=== PATIENT | male | born 1965 | race Caucasian/White ===

== ENCOUNTER 2023-11-24 10:57 | Emergency (ER) | payer MEDICAID ==
[2023-11-24 11:20] VITALS: BP 151/92; O2SAT 99
--- NOTE | 2023-11-24 12:01 | ED Physician Documentation ---
PD HPI LOWER EXT INJURY - Stated complaint Stated Complaint: RT ANKLE PX - Chief complaint Chief Complaint: Ext Problem - Additional information Additional information: 58-year-old male with no pertinent past medical history presents emergency department for right lateral malleolus tenderness. Patient says that he did not do anything to cause this pain he took a weird step and felt immediate pain just posterior below the right lateral malleolus. No history of trauma or surgery to this right ankle in the past. He did not hit his head he is not on blood thinners. He says he is okay at rest in regards to his pain but he says pain shoots up to a 10 with any sort of flexion or weightbearing activities. PD PAST MEDICAL HISTORY - Past Medical History Past Medical History: No - Past Surgical History Past Surgical History: No - Present Medications Home Medications: Ambulatory Orders Medication Instructions Recorded Confirmed No Known Home Medications 11/24/23 11/24/23 - Allergies Allergies/Adverse Reactions: Allergies Allergy/AdvReac Type Severity Reaction Status Date / Time No Known Drug Allergies Allergy Verified 11/24/23 11:11 - Social History Does the pt smoke?: No Smoking Status: Never smoker Does the pt drink ETOH?: Yes Does the pt have substance abuse?: No - Immunizations Immunizations are current?: Yes - POLST Patient has POLST: No PD ED PE NORMAL - Vitals Vital signs reviewed: Yes - General General: Alert and oriented X 3, No acute distress, Well developed/nourished - Extremities Extremities: Other (Right lower extremity: Significant tenderness to the right lateral malleolus. CMS intact, strong dorsalis pedis pulse Achilles intact) Results - Vitals Vitals: Vital Signs - 24 hr 11/24/23 11:06 Temperature 36.4 C L Heart Rate 62 Respiratory 18 Rate Blood Pressure 151/92 H O2 Saturation 99 Oxygen O2 Source Room air - Rads (name of study) Right ankle x-rays Relevant Findings:: Final report received, EMP independent interpretation of test, Other (Unsure if acute small bone fragments are seen adjacent to the medial malleolus, soft tissue swelling present possible ligament injury.) Procedures - Splint (location) - Minor Right ankle Splint applied by: Tech Type of splint: Fiberglass, Short leg, Posterior, Stirrup Other: Patient tolerated well, No complications, Neurovascular intact, Good alignment, Crutches provided PD Medical Decision Making - ED course ED course: 58-year-old male presents emergency department for right ankle pain. X-rays were complete for further evaluation and he appears to have an age-indeterminate small bone fragment adjacent to the medial malleolus.. Achilles is intact patient denies any pain with palpation of his Achilles region. I believe that patient is experiencing a ligament injury with a possible fracture. Because of the significance of pain that he experiences with any minimal flexion or extension of the right ankle and any minimal weightbearing activity we went ahead and put him in a posterior stirrup short leg splint. He is told to follow-up with Ortho outpatient and do not ambulate on the foot crutches given to the patient. Return precautions given patient offered Tylenol ibuprofen but he kindly declined. Patient safer discharge at this time. Departure - Departure Disposition: 01 Home, Self Care Clinical Impression: Closed right ankle fracture, Sprain of ligament of right ankle Instructions: ED Splint Care Fiberglass, ED Fx Ankle Lateral Malleolus Comments: It appears that you have some sort of ligament injury into that right ankle. We are sending you home with crutches you can alternate between Tylenol ibuprofen for pain and discomfort keep it elevated above your heart is much as possible to help with inflammation and follow-up with Ortho outpatient for further evaluation. Thank you for your patience today wishing you a speedy recovery please come back and if you are having any severe worsening pain or any other emergent concerns or symptoms. Forms: PCP List Discharge Date/Time: 11/24/23 14:54
--- NOTE | 2023-11-24 13:39 | XRAY Report ---
PROCEDURE: Ankle 3+V RT INDICATIONS: right ankle pain and swelling TECHNIQUE: 3 views of the ankle were acquired. COMPARISON: None. FINDINGS: Bones: Age-indeterminate small bone fragment seen adjacent to the medial malleolus. There are mild to moderate tibiotalar and midfoot degenerative changes. The ankle mortise is intact on this nonweightb earing study. Plantar enthesopathy. Soft tissues: Soft tissue swelling is present. IMPRESSION: Age-indeterminate small bone fragments are seen adjacent to the medial malleolus. Superimposed midfoot and tibiotalar degenerative changes. Soft tissue swelling is present. Ligamentous injury is possible. If there is high concern for further derangement, consider MRI evaluation. Reviewed by: Rome Urrutia MD on 11/24/2023 1:37 PM PDT Approved by: Rome Urrutia MD on 11/24/2023 1:37 PM PDT Station ID: [id number]
== END 2023-11-24 14:54 | disposition home or self-care (01) ==
LOC: ED 10:57
DX: S82.891A Other fracture of right lower leg, initial encounter for closed fracture (principal); S93.401A Sprain of unspecified ligament of right ankle, initial encounter; X50.9XXA Other and unspecified overexertion or strenuous movements or postures, initial encounter; Y93.89 Activity, other specified
CPT/HCPCS: 29515; 99284

== ENCOUNTER 2023-11-30 10:04 | Outpatient (CLI) | payer MEDICAID ==
--- NOTE | 2023-11-30 19:28 | XRAY Report ---
PROCEDURE: Ankle 3+V RT INDICATIONS: ANKLE PAIN,RIGHT TECHNIQUE: 3 views of the ankle were acquired. COMPARISON: 11/24/2023 FINDINGS: Bones: Questionable cortical irregularity and inferiorly displaced cortical fragment along the dista l aspect of the lateral malleolus seen predominantly on the mortise view. There are persistent rounded, corticated fragments distal to the medial malleolus. Several corticated osseous fragments are also seen posterior to the posterior subtalar joint. There is joint space loss and marginal spurring at the tibiotalar joint. Small plantar calcaneal spur. Soft tissues: Posterior tibiotalar joint effusion. Increased lateral periarticular soft tissue swell ing. Achilles tendon appears normal. IMPRESSION: Questionable, minimally displaced lateral malleolar fracture. Increased lateral periarticular soft tissue swelling and posterior tibiotalar joint effusion. Consider ankle MRI to detect further internal soft tissue injury. Reviewed by: Gwendolyn Randle MD on 11/30/2023 7:27 PM PDT Approved by: Gwendolyn Randle MD on 11/30/2023 7:27 PM PDT Station ID: [id number]
== END 2023-11-30 10:05 | disposition home or self-care (01) ==
LOC: DI 10:04
PROVIDERS: ATTEND Orthopaedic Surgery
DX: M25.471 Effusion, right ankle (principal); M25.571 Pain in right ankle and joints of right foot